=== PATIENT | female | born 1995 | race Caucasian/White ===

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

== ENCOUNTER → 2020-08-13 | Outpatient (CLI) | payer BC, OTHER ==
[~2020-08-13] MED LIST: CEFUROXIME500 MG PO; COLACE 100MG C100 MG PO; FEOSOL325 MG PO; KEFLEX CAP 500500 MG PO; LORTAB 5-325 M1 EACH PO; OMNICEF 300 MG300 MG PO; PRENATAL VITAM1 EAC8 PO; ZOFRAN ODT 4 MG4 MG SL
== END ==
LOC: KOH-I 14:32
DX: N20.0 Calculus of kidney (principal)
CPT/HCPCS: 74176

== ENCOUNTER 2020-10-12 15:19 | Emergency (ER) | payer BC, OTHER ==
[~2020-10-12 15:19] MED LIST changes: -OMNICEF 300 MG300 MG PO; -ZOFRAN ODT 4 MG4 MG SL
[2020-10-12 17:22] LABS: HEMOGLOBIN 12.3 gm/dl (12.3-15.3); RED BLOOD COUNT 4.41 M/UL (4.00-5.10); WHITE BLOOD COUNT 8.8 K/UL (4.5-11.0)
[2020-10-12] MEDS ORDERED: ZOFRAN ODT 4 MG4 MG SL (19:23)
[2020-10-12] MEDS ORDERED: OMNICEF 300 MG300 MG PO (19:23)
== END 2020-10-12 19:38 | disposition home or self-care (01) ==
LOC: ER1 15:19
PROVIDERS: Emergency Medicine
DX: N39.0 Urinary tract infection, site not specified (principal); N18.9 Chronic kidney disease, unspecified; Z20.822 Contact with and (suspected) exposure to COVID-19
CPT/HCPCS: 80053; 81001; 83690; 84703; 85025; 87077; 87086; 87186; 96374; 96375; 99284; J2270; J2405; U0002

== ENCOUNTER → 2021-10-15 | Emergency (ER) | payer BC ==
[~2021-10-15] MED LIST changes: +OMNICEF 300 MG300 MG PO; +ZOFRAN ODT 4 MG4 MG GT; +ZOFRAN ODT 4 MG4 MG SL
[2021-10-15 16:15] LABS: HEMOGLOBIN 13.1 gm/dl (12.3-15.3); RED BLOOD COUNT 4.62 M/UL (4.00-5.10); WHITE BLOOD COUNT 7.6 K/UL (4.5-11.0)
== END | disposition home or self-care (01) ==
LOC: ER1 15:15
PROVIDERS: Emergency Medicine
DX: N83.201 Unspecified ovarian cyst, right side (principal); N30.90 Cystitis, unspecified without hematuria; N18.9 Chronic kidney disease, unspecified
CPT/HCPCS: 76830; 80053; 81001; 82150; 83690; 84703; 85025; 86140; 96374; 96375; 99284; J0696; J2270; J2405